=== PATIENT | female | born 1995 | race Two or more races ===

== ENCOUNTER 2024-04-22 16:00 | Emergency (ER) | payer MEDICAID ==
[~2024-04-22] VITALS: Ht 157.5 cm; Wt 72.5 kg
[~2024-04-22 16:00] MED LIST: CYCL-120 PO; IBUP-1051 PO; NO HOME MEDS; PHEN-786 PO
[2024-04-22] MEDS ORDERED: AZIT250T83 PO (18:03)
[2024-04-22] MEDS ORDERED: PRED50TA PO (18:03)
[2024-04-22] MEDS ORDERED: ALBU8HFA INH (18:03)
[2024-04-22 18:06] VITALS: BP 128/74; PULSE 78; RESP 16; TEMP 98.6; O2SAT 98
== END 2024-04-22 18:10 | disposition home or self-care (01) ==
LOC: ER 16:00
DX: J22 Unspecified acute lower respiratory infection (principal); H66.91 Otitis media, unspecified, right ear
CPT/HCPCS: 71045; 99283